=== PATIENT | female | born 1950 | race Caucasian/White ===

== ENCOUNTER 2019-12-22 00:37 | Emergency (ER) | payer OTHER ==
[2019-12-22 02:03] LABS: INR-International Normal Ratio 1.6; Prothrombin Time 19.3 sec (12.0-14.7)
[2019-12-22 02:13] LABS: ALT (SGPT) 24 U/L (8-55); AST (SGOT) 37 U/L (5-34); Albumin 3.9 g/dL (3.4-4.8); Alkaline Phosphatase 87 U/L (40-110); Anion Gap 15 mmol/L (10-20); BUN (Urea Nitrogen) 18 mg/dL (9.8-20.1); Bilirubin, Total Less than 0.2 mg/dL (0.2-1.2); Calc. Creatinine Clearance 0 mL/min (70-130); Carbon Dioxide 24 mmol/L (23-31); Chloride 105 mmol/L (98-107); Estimated GFR-MDRD 56; Globulin 2.7 g/dL (2.4-3.5); Glucose 95 mg/dL (80-115); Potassium 3.5 mmol/L (3.5-5.1); Protein, Total 6.6 g/dL (6.0-8.3); Sodium 140 mmol/L (136-145)
[2019-12-22 02:15] LABS: #Basophils 0.1 thou/uL (0.0-0.2); #Eosinphils 0.9 thou/uL (0.0-0.7); #Lymphocytes 2.7 thou/uL (1.20-3.40); #Monocytes 0.8 thou/uL (0.11-0.59); #Neutrophils 4.2 thou/uL (1.40-6.50); %Basophils 1.2 % (0.0-1.0); %Lymphocytes 30.7 % (21.0-51.0); %Monocytes 9.5 % (0.0-10.0); %Neutrophils 48.5 % (42.0-75.0); Hemoglobin 11.9 g/dL (12.0-16.0); Mean Corpuscular Hemoglobin 28.7 pg (27.0-31.0); Mean Corpuscular Volume 95.6 fL (78.0-98.0); Mean Platelet Volume 8.7 fL (7.4-10.4); Platelet Count 295 thou/uL (130-400); RBC Distribution Width 14.3 % (11.5-14.5); Red Blood Cell (RBC) Count 4.15 mill/uL (4.20-5.40); White Blood Cell (WBC) Count 8.6 thou/uL (4.8-10.8)
[2019-12-22 02:16] LABS: Hypochromia SLIGHT = 6-15 cells (100X) (0-5/hpf); Platelet Morphology Comment Appears Adequate
--- NOTE | 2019-12-22 07:50 | CT ---
PRELIMINARY REPORT/[facility]/EMERGENCY AFTER HOURS PROCEDURE EXAM: CT Head Without Intravenous Contrast. CLINICAL HISTORY: PT. FELL HITTING LEFT SIDE OF HER HEAD, PT. ON BLOOD THINNERS, PT. STATES SHE HAD A BLEED A YEAR AGO. TECHNIQUE: Axial computed tomography images of the head/brain without intravenous contrast. COMPARISON: None provided. FINDINGS: BRAIN: Small amount of subarachnoid hemorrhage in a sulcus of the paramedian right parietal lobe. No mass lesion. No CT evidence for acute territorial infarct. No midline shift or extra-axial collectio n. VENTRICLES: No hydrocephalus. ORBITS: The orbits are unremarkable. SINUSES AND MASTOIDS: The paranasal sinuses and mastoid air cells are clear. SOFT TISSUES: No significant facial or scalp soft tissue swelling evident. No radiopaque foreign body is seen. BONES: No acute skull fracture. IMPRESSION: Small amount of acute subarachnoid hemorrhage in the paramedian right parietal lobe. ELECTRONICALLY SIGNED BY: Bandar Klein MD Dec 22, 2019 1:19:58 AM CDT FINAL REPORT CT OF THE BRAIN WITHOUT CONTRAST: DATE: 12/22/2019. HISTORY: Noncontrast CT of the brain was done for evaluation after a fall. COMPARISON: Comparison is made with a 10/14/2018 CT. FINDINGS: As before, there appears to be a small amount of acute subarachnoid blood in the right parietal/sharon edian region immediately next to the falx. It is curious in that it is the exact same place as befor e; however, prior studies have apparently shown a small arteriovenous malformation here which may pre dispose one to bleeding. Interestingly, the appearance is virtually identical to the 2019 study. No other areas of bleeding were seen. The ventricles are normal in size. There is no sign of mass, ed cristela, or stroke. The calvarium appears intact. IMPRESSION: Small area of acute subarachnoid blood in the medial right posterior parietal region just as on the 2 019 study. Report in agreement with preliminary reading by [facility]. POS: HOME
== END 2019-12-22 01:58 | disposition short-term general hospital (02) ==
LOC: BURERS 00:37
DX: S06.6X0A Traumatic subarachnoid hemorrhage without loss of consciousness, initial encounter (principal); I48.91 Unspecified atrial fibrillation; G43.909 Migraine, unspecified, not intractable, without status migrainosus; F43.10 Post-traumatic stress disorder, unspecified; F41.9 Anxiety disorder, unspecified; D50.9 Iron deficiency anemia, unspecified; Z87.891 Personal history of nicotine dependence; Z79.82 Long term (current) use of aspirin; Z79.899 Other long term (current) drug therapy; W18.12XA Fall from or off toilet with subsequent striking against object, initial encounter
CPT/HCPCS: 70450; 80053; 85025; 85610; 85730

== ENCOUNTER 2020-05-07 14:49 | Emergency (ER) | payer OTHER ==
[2020-05-07] MEDS ORDERED: Lidocaine 1% PF 5 ML VIAL ONE (15:06)
[2020-05-07] MEDS ORDERED: Acetaminophen 325 MG TAB ONE (15:06)
[2020-05-07] MEDS ORDERED: Bacitracin 1 PK ONE (15:07)
[2020-05-07] MEDS ORDERED: Clindamycin 150 MG CAP ONE ×2 (15:57)
--- NOTE | 2020-05-07 18:41 | RAD ---
LEFT THUMB THREE VIEWS: Date: 05-07-2020 FINDINGS: No acute bony injury was seen. No opaque foreign bodies were present. A very tiny zoran of bone at th e lateral aspect of the IP joint does not appear acute. IMPRESSION: No acute bony finding. POS: HOME
== END 2020-05-07 16:03 | disposition home or self-care (01) ==
LOC: BURERS 14:49
DX: S61.012A Laceration without foreign body of left thumb without damage to nail, initial encounter (principal); D50.9 Iron deficiency anemia, unspecified; G43.909 Migraine, unspecified, not intractable, without status migrainosus; F41.9 Anxiety disorder, unspecified; F43.10 Post-traumatic stress disorder, unspecified; I48.91 Unspecified atrial fibrillation; Z87.891 Personal history of nicotine dependence; Z79.899 Other long term (current) drug therapy; Z79.82 Long term (current) use of aspirin; W26.8XXA Contact with other sharp object(s), not elsewhere classified, initial encounter
CPT/HCPCS: 12001

== ENCOUNTER 2020-07-08 17:46 | Emergency (ER) | payer OTHER ==
--- NOTE | 2020-07-08 19:32 | CT ---
CT OF THE BRAIN WITHOUT CONTRAST: Date: 07-08-2020 Comparison: 12-22-2019 FINDINGS: The ventricles are normal in size. A small area of increased density is seen in the medial right marisa etal lobe as on the prior study. This was said to correlate with a known AVM. The appearance of this area is no different today than in December. Otherwise, I see no evidence of bleeding, edema, or stroke. No extraaxial hematoma was seen. The skull appears intact and the visible paranasal sinuses and masto id air cells are clear. IMPRESSION: 1. No acute intracranial findings. 2. Small area of blush in the medial right parietal lobe that has been shown in the past to be an AVM . Its appearance is unchanged compared to December 2019. Findings discussed with Dr. Payne at 1840 on 07-07-2020. POS: HOME
--- NOTE | 2020-07-08 19:35 | RAD ---
CERVICAL SPINE FOUR VIEWS: Date: 07-08-2020 FINDINGS: There is loss of the normal cervical lordosis, but no fracture or dislocation was seen. The C1-2 dens distance is normal and the soft tissues are normal in thickness. Disc space narrowing is present at C5-6 and to a lesser extent at C6-7. Alignment of the spine is as expected. IMPRESSION: Straightening of the cervical spine but no acute findings otherwise. Findings discussed with Dr. Payne at 1840 on 07-18-2020. POS: HOME
== END 2020-07-08 18:52 | disposition home or self-care (01) ==
LOC: BURERS 17:46
DX: S09.90XA Unspecified injury of head, initial encounter (principal); W01.198A Fall on same level from slipping, tripping and stumbling with subsequent striking against other object, initial encounter; Z79.899 Other long term (current) drug therapy; Z79.82 Long term (current) use of aspirin; I48.91 Unspecified atrial fibrillation; G43.909 Migraine, unspecified, not intractable, without status migrainosus; F17.210 Nicotine dependence, cigarettes, uncomplicated
CPT/HCPCS: 70450; 72040

== ENCOUNTER 2020-11-02 14:17 | Emergency (ER) | payer OTHER | END 2020-11-02 18:51 | disposition home or self-care (01) | LOC: BURERS 14:17 | DX: S93.402A Sprain of unspecified ligament of left ankle, initial encounter (principal); S93.602A Unspecified sprain of left foot, initial encounter; I48.91 Unspecified atrial fibrillation; D50.9 Iron deficiency anemia, unspecified; Z87.891 Personal history of nicotine dependence; Z79.899 Other long term (current) drug therapy; Z79.82 Long term (current) use of aspirin; W01.0XXA Fall on same level from slipping, tripping and stumbling without subsequent striking against object, initial encounter ==

== ENCOUNTER 2021-05-11 12:55 | Emergency (ER) | payer MEDICARE, OTHER ==
[2021-05-11 13:19] LABS: #Basophils 0.1 thou/uL (0.0-0.2); #Lymphocytes 1.6 thou/uL (1.20-3.40); #Monocytes 0.3 thou/uL (0.11-0.59); #Neutrophils 7.6 thou/uL (1.40-6.50); %Basophils 0.6 % (0.0-1.0); %Eosinophils 0.3 % (0.0-10.0); %Lymphocytes 16.8 % (21.0-51.0); %Monocytes 2.8 % (0.0-10.0); %Neutrophils 79.5 % (42.0-75.0); Hemoglobin 14.6 g/dL (12.0-16.0); Mean Corpuscular HGB CONC 32.1 g/dL (32.0-36.0); Mean Corpuscular Hemoglobin 30.9 pg (27.0-31.0); Mean Corpuscular Volume 96.2 fL (78.0-98.0); Platelet Count 388 thou/uL (130-400); RBC Distribution Width 12.6 % (11.5-14.5); Red Blood Cell (RBC) Count 4.72 mill/uL (4.20-5.40); White Blood Cell (WBC) Count 9.5 thou/uL (4.8-10.8)
[2021-05-11 13:24] LABS: INR-International Normal Ratio 0.9; Prothrombin Time 12.2 sec (12.0-14.7)
[2021-05-11 13:26] LABS: PTT 26.1 sec (22.9-36.1)
[2021-05-11 13:36] LABS: ALT (SGPT) 171 U/L (8-55); AST (SGOT) 265 U/L (5-34); Albumin 4.3 g/dL (3.4-4.8); Alkaline Phosphatase 151 U/L (40-110); Anion Gap 18 mmol/L (10-20); BUN (Urea Nitrogen) 24 mg/dL (9.8-20.1); Bilirubin, Total 0.4 mg/dL (0.2-1.2); Calc. Creatinine Clearance 0 mL/min (70-130); Carbon Dioxide 26 mmol/L (23-31); Chloride 97 mmol/L (98-107); Glucose 127 mg/dL (80-115); Potassium 3.9 mmol/L (3.5-5.1); Protein, Total 7.3 g/dL (5.8-8.1); Sodium 137 mmol/L (136-145)
[2021-05-11] MEDS ORDERED: Adenosine 6 MG/2 ML VIAL ONE ×3 (13:51→14:01)
[2021-05-11] MEDS ORDERED: Metoprolol Tartrate 5 MG/5 ML VIAL ONE (14:28)
[2021-05-11] MEDS ORDERED: Diltiazem 125 MG/25 ML ONE (14:28)
== END 2021-05-11 16:25 | disposition short-term general hospital (02) ==
LOC: BURERS 12:55
DX: I48.92 Unspecified atrial flutter (principal); D50.9 Iron deficiency anemia, unspecified; G43.909 Migraine, unspecified, not intractable, without status migrainosus; Z79.899 Other long term (current) drug therapy; Z79.01 Long term (current) use of anticoagulants
CPT/HCPCS: 71045; 80053; 83880; 84484; 85025; 85610; 85730; 93005; 96374; 96375; 96376; J0153

== ENCOUNTER 2022-02-10 10:48 | Emergency (ER) | payer OTHER ==
[2022-02-10 11:29] LABS: #Eosinphils 0.1 thou/uL (0.0-0.7); #Lymphocytes 2.3 thou/uL (1.20-3.40); #Monocytes 0.5 thou/uL (0.11-0.59); #Neutrophils 3.8 thou/uL (1.40-6.50); %Basophils 0.5 % (0.0-1.0); %Eosinophils 2.1 % (0.0-10.0); %Lymphocytes 34.2 % (21.0-51.0); %Monocytes 7.7 % (0.0-10.0); %Neutrophils 55.5 % (42.0-75.0); Mean Corpuscular HGB CONC 32.2 g/dL (32.0-36.0); Mean Corpuscular Hemoglobin 30.1 pg (27.0-31.0); Mean Corpuscular Volume 93.7 fL (78.0-98.0); Mean Platelet Volume 8.5 fL (7.4-10.4); Platelet Count 306 thou/uL (130-400); RBC Distribution Width 12.9 % (11.5-14.5); Red Blood Cell (RBC) Count 5.31 mill/uL (4.20-5.40); White Blood Cell (WBC) Count 6.8 thou/uL (4.8-10.8)
[2022-02-10 11:43] LABS: Bilirubin Small (Negative); Blood, Urine Small (Negative); Clarity Slightly Cloudy (Clear); Glucose, Urine (Dipstick) Negative (Negative); Ketone, Urine 40 mg/dL (Negative); Leukocyte Small (Negative); Nitrite Negative (Negative); Protein, Urine (Dipstick) > or equal to 300 mg/dL (Neg-Trace); RBC/HPF 0-3 HPF (0-3); Specific Gravity, Urine 1.025 (1.005-1.030)
[2022-02-10 11:45] LABS: Bacteria/HPF 2+ HPF (None Seen); Renal Epithelial 0-3 HPF (None Seen); Yeast-Budding Rare HPF (None Seen)
[2022-02-10 11:47] LABS: ALT (SGPT) 31 U/L (8-55); AST (SGOT) 56 U/L (5-34); Albumin 3.9 g/dL (3.4-4.8); Alkaline Phosphatase 116 U/L (40-110); Anion Gap 12 mmol/L (10-20); BUN (Urea Nitrogen) 9 mg/dL (9.8-20.1); Bilirubin, Total 0.4 mg/dL (0.2-1.2); CK (CPK) 58 U/L (29-168); Calc. Creatinine Clearance 0 mL/min (70-130); Carbon Dioxide 26 mmol/L (23-31); Chloride 111 mmol/L (98-107); Estimated GFR 85; Glucose 112 mg/dL (83-110); Magnesium 1.9 mg/dL (1.6-2.6); Potassium 3.5 mmol/L (3.5-5.1); Protein, Total 6.9 g/dL (5.8-8.1); Sodium 145 mmol/L (136-145)
== END 2022-02-10 13:15 | disposition home or self-care (01) ==
LOC: BURERS 10:48
DX: A09 Infectious gastroenteritis and colitis, unspecified (principal); E86.0 Dehydration; I48.91 Unspecified atrial fibrillation; D50.9 Iron deficiency anemia, unspecified; Z85.850 Personal history of malignant neoplasm of thyroid; Z85.43 Personal history of malignant neoplasm of ovary; M48.00 Spinal stenosis, site unspecified; Z87.01 Personal history of pneumonia (recurrent); Z79.899 Other long term (current) drug therapy
CPT/HCPCS: 71045; 80053; 81003; 81015; 82550; 83605; 83735; 83880; 84443; 84484; 85025; 93005; 94760; 96360

== ENCOUNTER 2022-06-27 13:40 | Emergency (ER) | payer OTHER ==
[~2022-06-27 13:40] MED LIST: Iopamidol 370 76% 100 ML VIAL ONE
[2022-06-27 14:04] LABS: #Basophils 0.1 thou/uL (0.0-0.2); #Lymphocytes 2.7 thou/uL (1.20-3.40); #Monocytes 0.5 thou/uL (0.11-0.59); #Neutrophils 2.2 thou/uL (1.40-6.50); %Basophils 1.3 % (0.0-1.0); %Eosinophils 15.7 % (0.0-10.0); %Lymphocytes 41.1 % (21.0-51.0); %Monocytes 8.2 % (0.0-10.0); %Neutrophils 33.8 % (42.0-75.0); Hemoglobin 14.9 g/dL (12.0-16.0); Mean Corpuscular HGB CONC 33.3 g/dL (32.0-36.0); Mean Corpuscular Hemoglobin 31.5 pg (27.0-31.0); Mean Corpuscular Volume 94.7 fl (78.0-98.0); Platelet Count 301 10x3/uL (130-400); Red Blood Cell (RBC) Count 4.73 mill/uL (4.20-5.40); White Blood Cell (WBC) Count 6.6 10x3/uL (4.8-10.8)
[2022-06-27 14:27] LABS: ALT (SGPT) 25 U/L (8-55); AST (SGOT) 55 U/L (5-34); Albumin 3.8 g/dL (3.4-4.8); Alkaline Phosphatase 107 U/L (40-110); Anion Gap 13 mmol/L (10-20); BUN (Urea Nitrogen) 21 mg/dL (9.8-20.1); Bilirubin, Total 0.3 mg/dL (0.2-1.2); CK (CPK) 100 U/L (29-168); Calc. Creatinine Clearance 0 mL/min (70-130); Calcium 9.2 mg/dL (7.8-10.44); Carbon Dioxide 26 mmol/L (23-31); Chloride 106 mmol/L (98-107); Estimated GFR 74; Globulin 2.9 g/dL (2.4-3.5); Glucose 111 mg/dL (83-110); Magnesium 2.3 mg/dL (1.6-2.6); Potassium 3.9 mmol/L (3.5-5.1); Protein, Total 6.7 g/dL (5.8-8.1); Sodium 141 mmol/L (136-145)
[2022-06-27] MEDS ORDERED: Digoxin 0.5 MG/2 ML AMP ONE (15:25)
== END 2022-06-27 16:40 | disposition home or self-care (01) ==
LOC: BURERS 13:40
DX: I48.20 Chronic atrial fibrillation, unspecified (principal); R00.0 Tachycardia, unspecified; F17.210 Nicotine dependence, cigarettes, uncomplicated
CPT/HCPCS: 71045; 71275; 80053; 82550; 83605; 83735; 83880; 84443; 84484; 85025; 85379; 93005; 96374; 96375; 96376; J1160; Q9967

== ENCOUNTER 2025-05-30 08:43 | Outpatient (CLI) | payer OTHER ==
[2025-05-30] MEDS ORDERED: Iopamidol 370 76% 100 ML VIAL ONE (13:12)
== END 2025-05-30 08:44 | disposition home or self-care (01) ==
LOC: BURCT 08:43
DX: K86.2 Cyst of pancreas (principal); Z98.0 Intestinal bypass and anastomosis status; K86.89 Other specified diseases of pancreas
CPT/HCPCS: 74177; Q9967